=== PATIENT | female | born 1995 | race Caucasian/White ===

== ENCOUNTER 2024-09-23 05:10 | Emergency (ER) | payer MEDICAID ==
[~2024-09-23] VITALS: Ht 160 cm; Wt 123.7 kg
[2024-09-23 05:16] VITALS: O2SAT 100
[2024-09-23] MEDS: KETOROLAC 15MG/ML VIAL IM ONE (05:54)
[2024-09-23] MEDS ORDERED: T3 PO (06:58)
[2024-09-23 07:03] VITALS: BP 139/77; PULSE 66; RESP 18; TEMP 36.8; O2SAT 100
== END 2024-09-23 07:10 | disposition home or self-care (01) ==
LOC: ER 05:10
DX: M54.6 Pain in thoracic spine (principal); Z79.899 Other long term (current) drug therapy
CPT/HCPCS: 99283; 72070; 96372; J1885